=== PATIENT | male | born 1985 | race Two or more races ===

== ENCOUNTER → 2019-12-18 06:00 | Outpatient (CLI) | payer OTHER | END | disposition home or self-care (01) | LOC: LAB 06:00 → CIR.AMB 12-23 06:37 → EDSTATUS 12-23 09:39 → CIR.AMB 12-23 12:55 | DX: N47.1 Phimosis (principal); D68.8 Other specified coagulation defects; N39.0 Urinary tract infection, site not specified; Z01.811 Encounter for preprocedural respiratory examination ==

== ENCOUNTER 2020-03-23 05:59 | Day surgery (SDC) | payer OTHER | END 2020-03-23 13:35 | disposition home or self-care (01) | LOC: CIR.AMB 05:59 | PROVIDERS: ATTEND Urology | DX: D07.5 Carcinoma in situ of prostate (principal) ==